=== PATIENT | female | born 1995 | race American Indian/Alaskan Native ===

== ENCOUNTER 2020-09-14 14:46 | Outpatient (CLI) | payer OTHER | END 2020-09-15 17:02 | disposition home or self-care (01) | LOC: OBS/DEL 14:46 | PROVIDERS: ATTEND Obstetrics & Gynecology | DX: O60.03 Preterm labor without delivery, third trimester (principal) ==

== ENCOUNTER 2020-12-18 09:10 | Outpatient (CLI) | payer OTHER ==
[2020-12-18] MEDS ORDERED: PRENATAL TABLE1 EAC1 PO (10:07)
[2020-12-18] MEDS ORDERED: IRON325 MG PO (10:07)
== END 2020-12-18 14:06 | disposition home or self-care (01) ==
LOC: OBS/DEL 09:10
PROVIDERS: ATTEND Obstetrics & Gynecology
DX: O47.1 False labor at or after 37 completed weeks of gestation (principal); Z3A.37 37 weeks gestation of pregnancy; O26.843 Uterine size-date discrepancy, third trimester; O35.0XX0 Maternal care for (suspected) central nervous system malformation in fetus, not applicable or unspecified; O09.93 Supervision of high risk pregnancy, unspecified, third trimester

== ENCOUNTER 2021-01-01 14:55 | Outpatient (CLI) | payer OTHER ==
[~2021-01-01 14:55] MED LIST: IRON325 MG PO; PRENATAL TABLE1 EAC1 PO
== END 2021-01-01 18:13 | disposition home or self-care (01) ==
LOC: OBS/DEL 14:55
PROVIDERS: ATTEND Obstetrics & Gynecology
DX: O47.1 False labor at or after 37 completed weeks of gestation (principal); Z3A.39 39 weeks gestation of pregnancy

== ENCOUNTER 2021-01-02 15:37 | Inpatient (IN) | payer OTHER ==
[~2021-01-02] VITALS: Ht 162.6 cm; Wt 64.0 kg
== END 2021-01-06 11:34 | disposition home or self-care (01) | DRG 807 ==
LOC: LDR 15:37 → OB/GYN 01-03 18:57
PROVIDERS: ADMIT Obstetrics & Gynecology; ATTEND Obstetrics & Gynecology
PROC: 3E0P7VZ Introduction of Hormone into Female Reproductive, Via Natural or Artificial Opening (ICD-10-PCS; 2021-01-02)
PROC: 4A1HXFZ Monitoring of Products of Conception, Cardiac Rhythm, External Approach (ICD-10-PCS; 2021-01-02)
PROC: 10E0XZZ Delivery of Products of Conception, External Approach (ICD-10-PCS; principal; 2021-01-03)
PROC: 0KQM0ZZ Repair Perineum Muscle, Open Approach (ICD-10-PCS; 2021-01-03)
PROC: 10907ZC Drainage of Amniotic Fluid, Therapeutic from Products of Conception, Via Natural or Artificial Opening (ICD-10-PCS; 2021-01-03)
DX: O99.12 Other diseases of the blood and blood-forming organs and certain disorders involving the immune mechanism complicating childbirth (principal); D69.6 Thrombocytopenia, unspecified; O70.1 Second degree perineal laceration during delivery; O48.0 Post-term pregnancy; Z37.0 Single live birth; Z3A.40 40 weeks gestation of pregnancy